=== PATIENT | female | born 1945 | race Caucasian/White ===

== ENCOUNTER → 2018-11-27 07:48 | Outpatient (CLI) | payer MEDICARE, SELFPAY ==
--- NOTE | 2018-11-27 | DI.MRI.S_ITS ---
PROCEDURE: MR KNEE LT WO CON INDICATIONS: Unilateral primary osteoarthritis, left knee TECHNIQUE: Noncontrast sagittal PD fast spin echo and T2 fast spin echo with fat saturation, sagittal 3-D FLASH with fat saturation; coronal T1 spin echo and PD fast spin echo with fat saturation, and axial PD fast spin echo with fat saturation through the knee. COMPARISON: [facility] [place], CR, XR KNEE ARTHRITIC SERIES BI, 10/14/2018, 9:59. FINDINGS: Image quality: Excellent. Menisci: There is degenerative signal in the lateral meniscus extending to the free edge suggestive of mild degenerative tearing. Meniscus appears intact. The meniscal root ligaments also appear intact. Cruciate ligaments: The anterior and posterior cruciate ligaments appear intact. Medial structures: The medial collateral ligament appears intact. There is mild edema along the medial capsule which may represent sequelae of a mild grade 1 MCL sprain or chronic reactive changes. The semimembranosus tendon insertions and meniscocapsular junction appear intact. Visualized portions of the pes anserinus tendons appear intact without associated bursal fluid collections. Lateral structures: The lateral collateral ligament, long and short heads of the biceps femoris tendon appear intact. The popliteus tendon appears intact. Iliotibial band appears normal. Anterior structures: The quadriceps and patellar tendons appear intact. There is slight lateral shift of the patella. No femoral trochlear dysplasia or ventral trochlear prominence. No edema in the infrapatellar fat pad. Bones and cartilage: No bone marrow contusions or fractures. There is mild osteophytosis. There is mild cartilage thinning laterally in the patellofemoral compartment. In the medial and lateral compartments, there is also mild cartilage thinning and chondral fissuring also demonstrated along the lateral tibial plateau associated with mild subchondral edema. Joint space: There is a small joint effusion. No Burnett's cyst. Normal appearing synovial plicae are incidentally noted. IMPRESSION: 1. Mild osteoarthritic changes most prominent in the lateral compartment where there is contrast measuring associated with mild subchondral edema along the lateral tibial plateau. 2. Small joint effusion. 3. Mild degenerative signal in the lateral meniscus extending to the free edge suggestive of minimal degenerative tearing. 4. Mild edema along the medial capsule may represent sequelae of a mild grade 1 MCL sprain or chronic reactive changes. Dictated by: Jayden Tsang M.D. on 11/27/2018 at 11:48 Approved by: Jayden Tsang M.D. on 11/27/2018 at 13:08
== END ==
PROVIDERS: PCP Physician Assistant; Visit Provider Orthopaedic Surgery
DX: M17.12 Unilateral primary osteoarthritis, left knee (principal); M25.462 Effusion, left knee
CPT/HCPCS: 73721

== ENCOUNTER 2022-02-09 05:58 | Emergency (ER) | payer MEDICARE, OTHER, SELFPAY ==
[2022-02-09] VITALS (9 sets, daily range): BP systolic 132–171; BP diastolic 65–77; PULSE 71–88; RESP 16–22; TEMP 36.9; O2SAT 92–96; BMI 28.9
--- NOTE | 2022-02-09 06:10 | DI.RAD.S_ITS ---
PROCEDURE: XR CHEST 1V INDICATIONS: cough TECHNIQUE: One view of the chest was acquired. COMPARISON: [facility], , CHEST 2VW, 07/29/2014, 16:10. FINDINGS: Surgical changes and devices: None. Lungs and pleura: Lungs appear clear. No consolidation. No pleural effusions or pneumothorax. Mediastinum: Mediastinal contours appear normal. Heart size is normal. Bones and chest wall: No suspicious bony lesions. Overlying soft tissues appear unremarkable. IMPRESSION: No acute cardiopulmonary abnormality identified. Dictated by: August Marcelino M.D. on 02/09/2022 at 7:59 Approved by: August Marcelino M.D. on 02/09/2022 at 8:00
--- NOTE | 2022-02-09 06:25 | ED.SOB ---
HPI - SOB/Dyspnea <Nan Colón DO - Last Filed: 02/14/22 04:04> General Chief Complaint: Shortness of Breath/Dyspnea Stated Complaint: severe cough , cough settled into chest Time Seen by Provider: 02/09/22 06:16 Source: patient Mode of arrival: Ambulatory Limitations: no limitations History of Present Illness HPI Narrative: Patient is a healthy 76-year-old female who presents with cough and shortness of breath. She says it has been ongoing for the about the last 2-3 days. He typically walks every day and has no problem however the last couple days she has not felt great. Possibly some fever and chills. She certainly is coughing and can not stop. She denies any chest pain. No swelling. She said she was unable to sleep last night due to the cough. She had a negative home COVID test yesterday Related Data Home Medications Medication Instructions Recorded Confirmed CALCIUM ACETATE (Phoslo) 1,000 mg PO Q DAY ##0 12/13/09 CHOLECALCIFEROL (VITAMIN D3) 1,000 iu PO Q DAY ##0 12/13/09 (Vitamin D3) MULTIVITAMIN (Multivitamin 1 cap PO EVERY DAY ##0 12/13/09 -) Vitamin E (Alpha-Tocopherol) 200 unit PO Q DAY ##0 12/13/09 [FISH OIL] Q DAY ##0 12/13/09 acetaminophen 325 mg tablet 325 mg PO PRN ##0 12/13/09 Previous Rx's Medication Instructions Recorded methylprednisolone 4 mg tablets in See Rx Instructions PO .COMPLEX 02/09/22 a dose pack (Medrol (Neo)) #21 ea Review of Systems <Nan Colón DO - Last Filed: 02/14/22 04:04> Review of Systems Narrative: GENERAL: + fever and chills HEENT: Denies sinus pain, ear pain, sore throat, difficulty swallowing, neck pain RESPIRATORY: See HPI CARDIOVASCULAR: Denies chest pain, palpitations, orthopnea, edema GASTROINTESTINAL: Denies nausea, vomiting, abdominal pain, diarrhea, constipation, melena. : Denies dysuria, frequency, incontinence, hematuria, urinary retention, flank pain. MUSCULOSKELETAL: Denies weakness, joint pain, or bony pain SKIN: No rash, no erythema, no pruritus NEUROLOGIC: Denies weakness, dizziness, headache, numbness, change in speech, confusion PSYCHIATRIC: No concerning psychosocial issues. 12 point review of systems is negative except for those stated above and HPI Patient History <Nan Colón DO - Last Filed: 02/14/22 04:04> Social History Smoking Status: Never smoker Smoking Status: Never smoker Substance Use Type: does not use Exam <Nan Colón DO - Last Filed: 02/14/22 04:04> Initial Vital Signs Initial Vital Signs: Vital Signs Temperature 98.5 F 02/09/22 06:10 Pulse Rate 83 02/09/22 06:10 Respiratory Rate 22 02/09/22 06:10 Blood Pressure 168/74 H 02/09/22 06:10 Pulse Oximetry 93 02/09/22 06:10 Oxygen Delivery Method 02/09/22 06:10 GENERAL: Alert 76-year-old female appears to not feel well and in no acute distress. HEENT: Head atraumatic,EOMI, pupils reactive, face symmetric, moist mucous membranes CARDIOVASCULAR: Regular rate and rhythm without murmurs, rubs or gallops. RESPIRATORY crackles bilaterally no wheezes or rales speaks in full sentences however she is coughing quite a bit ABDOMEN: Soft, nontender. Normoactive bowel sounds all 4 quadrants. No guarding or rebound. EXTREMITIES: Normal range of motion, no clubbing or edema. Neurovascularly intact NEUROLOGICAL: Alert and oriented x4.Normal gait and speech. SKIN: Warm, dry, no laceration, no petechiae, no rashes or lesions. <Kevin Barry MD - Last Filed: 02/09/22 13:27> Initial Vital Signs Initial Vital Signs: Vital Signs Temperature 98.5 F 02/09/22 06:10 Pulse Rate 83 02/09/22 06:10 Respiratory Rate 22 02/09/22 06:10 Blood Pressure 168/74 H 02/09/22 06:10 Pulse Oximetry 93 02/09/22 06:10 Oxygen Delivery Method 02/09/22 06:10 Course <DO Beatriz Smith Last Filed: 02/14/22 04:04> Orders Ordered: Discontinued Medications Albuterol (Albuterol Hfa Prepack) 1 box MIS SEEINSTR ONE Stop: 02/09/22 08:07 Last Admin: 02/09/22 08:11 Dose: 1 box Documented By: CALLI Albuterol/Ipratropium (Albuterol/Ipratropium 3 Ml Ampul) 3 ml INH NOW ONE Stop: 02/09/22 06:23 Last Admin: 02/09/22 06:39 Dose: 3 ml Documented By: CHAVA Prednisone (Prednisone 20 Mg Tablet) 40 mg PO NOW ONE Stop: 02/09/22 08:11 Last Admin: 02/09/22 08:34 Dose: 40 mg Documented By: MANDY Vital Signs Vital signs: Vital Signs - 8 hr 02/09/22 06:10 02/09/22 06:39 02/09/22 06:39 Temperature 98.5 F Pulse Rate 83 71 73 Respiratory Rate 22 18 Blood Pressure 168/74 H Pulse Oximetry 93 95 92 Oxygen Delivery Method Room Air Room Air 02/09/22 07:00 02/09/22 07:00 02/09/22 07:30 Temperature Pulse Rate 76 Respiratory Rate Blood Pressure 149/65 H 171/77 H Pulse Oximetry 95 Oxygen Delivery Method 02/09/22 07:30 02/09/22 07:47 02/09/22 07:47 Temperature Pulse Rate 88 84 Respiratory Rate Blood Pressure 148/67 H Pulse Oximetry 94 96 Oxygen Delivery Method 02/09/22 08:00 02/09/22 08:00 02/09/22 08:11 Temperature Pulse Rate 83 Respiratory Rate Blood Pressure 132/69 Pulse Oximetry 94 96 Oxygen Delivery Method Room Air 02/09/22 08:30 02/09/22 08:30 02/09/22 08:51 Temperature Pulse Rate 82 82 Respiratory Rate 16 Blood Pressure 148/66 H 148/66 H Pulse Oximetry 94 93 Oxygen Delivery Method Room Air <Kevin Barry MD - Last Filed: 02/09/22 13:27> Course Course Narrative: February 09, 2022 at 7:00 a.m.. Sign out from Dr. Colón, patient here for 3 days of upper respiratory symptoms. Not requiring supplemental oxygen. Nebulizing treatment no changes here. Laboratory studies and imaging results are pending. 7:30 a.m.. Introduced myself to patient and her sister. Patient in no distress at this time. On exam she does have bibasilar rhonchi and mild wheezing. Mild coarse lung sounds at the bases. But speaking full sentences. Orders Ordered: Discontinued Medications Albuterol (Albuterol Hfa Prepack) 1 box MIS SEEINSTR ONE Stop: 02/09/22 08:07 Last Admin: 02/09/22 08:11 Dose: 1 box Documented By: CALLI Albuterol/Ipratropium (Albuterol/Ipratropium 3 Ml Ampul) 3 ml INH NOW ONE Stop: 02/09/22 06:23 Last Admin: 02/09/22 06:39 Dose: 3 ml Documented By: CHAVA Prednisone (Prednisone 20 Mg Tablet) 40 mg PO NOW ONE Stop: 02/09/22 08:11 Last Admin: 02/09/22 08:34 Dose: 40 mg Documented By: MANDY Reevaluation(s) Reevaluation #1: Patient ambulated in hallway. 93-95% room air. Patient denies being short of breath. Not dyspneic. She is speaking full sentences. Time: 08:08 Reevaluation #2: Patient feels much better, did have teaching with inhaler and did very well with it. Also flutter valve teaching done and states she feels much better with using that to promote coughing. Denies any dyspnea. Reviewed results with patient and sister. Return precautions reviewed with them. They desire discharge home. Time: 08:36 Vital Signs Vital signs: Vital Signs - 8 hr 02/09/22 06:10 02/09/22 06:39 02/09/22 06:39 Temperature 98.5 F Pulse Rate 83 71 73 Respiratory Rate 22 18 Blood Pressure 168/74 H Pulse Oximetry 93 95 92 Oxygen Delivery Method Room Air Room Air 02/09/22 07:00 02/09/22 07:00 02/09/22 07:30 Temperature Pulse Rate 76 Respiratory Rate Blood Pressure 149/65 H 171/77 H Pulse Oximetry 95 Oxygen Delivery Method 02/09/22 07:30 02/09/22 07:47 02/09/22 07:47 Temperature Pulse Rate 88 84 Respiratory Rate Blood Pressure 148/67 H Pulse Oximetry 94 96 Oxygen Delivery Method 02/09/22 08:00 02/09/22 08:00 02/09/22 08:11 Temperature Pulse Rate 83 Respiratory Rate Blood Pressure 132/69 Pulse Oximetry 94 96 Oxygen Delivery Method Room Air 02/09/22 08:30 02/09/22 08:30 02/09/22 08:51 Temperature Pulse Rate 82 82 Respiratory Rate 16 Blood Pressure 148/66 H 148/66 H Pulse Oximetry 94 93 Oxygen Delivery Method Room Air MDM - SOB/Dyspnea <Nan Colón, DO - Last Filed: 02/14/22 04:04> Lab Data Result diagrams: 02/09/22 06:33 02/09/22 06:33 Labs: Lab Results 02/09/22 02/09/22 02/09/22 Range/Units 06:20 06:33 06:33 WBC 3.8 L (4.5-11.0) X10^3/uL RBC 4.24 (4.0-5.2) X10^6/uL Hgb 12.6 (12.0-16.0) g/dL Hct 36.9 (36-46) % MCV 87.0 (80-100) fL MCH 29.8 (26-34) PG MCHC 34.2 (30-36) % RDW 14.2 (11.6-14.8) % Plt Count 159 (150-400) X10^3/uL Neut % (Auto) 53.2 (50-75) % Lymph % (Auto) 30.4 (25-40) % Moca % (Auto) 12.1 (3-14) % Eos % (Auto) 3.7 (2-4) % Baso % (Auto) 0.6 (0-2) % Neut # (Auto) 2000 (6107-3983) /uL Lymph # (Auto) 1200 (2116-4035) /uL Moca # (Auto) 500 (0-900) /uL Eos # (Auto) 100 (0-450) /uL Baso # (Auto) 0 (0-100) /uL Sodium 138 (137-145) mmol/L Potassium 3.6 (3.4-5.1) mmol/L Chloride 104 (98-107) mmol/L Carbon Dioxide 29 (22-32) mmol/L BUN 10 (7-17) mg/dL Creatinine 0.55 (0.52-1.04) mg/dL Estimated GFR > 60 (>60) mL/min BUN/Creatinine Ratio 18.2 (6-22) Glucose 94 (80-110) mg/dL Calcium 8.6 (8.4-10.2) mg/dL Total Bilirubin 0.5 (0.2-1.3) mg/dL AST 28 (14-36) IU/L ALT 15 (<35) IU/L Alkaline Phosphatase 68 (38-126) U/L Total Protein 6.8 (6.3-8.2) g/dL Albumin 3.7 (3.5-5.0) g/dL Globulin 3.1 (1.7-4.1) g/dL Albumin/Globulin Ratio 1.2 (1.0-2.8) Procalcitonin (<0.5) ng/mL Chlamy pneumoniae PCR Not detected (Not Detect) Adenovirus (PCR) Not detected (Not Detect) B. pertussis DNA (PCR) Not detected (Not Detecte) B.parapertussis DNA PCR Not detected (Not Detecte) Coronavirus OC43 (PCR) Not detected (Not Detect) Coronavirus HKU1 (PCR) Not detected (Not Detect) Coronavirus 229E (PCR) Not detected (Not Detect) SARS-CoV-2 (PCR) Not detected (Not Detecte) Coronavirus NL63 (PCR) Not detected (Not Detect) Human Metapneumovir PCR Not detected (Not Detect) Influenza Type A (PCR) Not detected (Not Detect) Influenza Type B (PCR) Not detected (Not Detect) M. pneumoniae (PCR) Not detected (Not Detect) Parainfluenza 1 (PCR) Not detected (Not Detect) Parainfluenza 2 (PCR) Not detected (Not Detect) Parainfluenza 3 (PCR) Not detected (Not Detect) Parainfluenza 4 (PCR) Not detected (Not Detect) RSV (PCR) Detected H (Not Detect) Entero/Rhino (PCR) Not detected (Not Detect) 02/09/22 Range/Units 06:33 WBC (4.5-11.0) X10^3/uL RBC (4.0-5.2) X10^6/uL Hgb (12.0-16.0) g/dL Hct (36-46) % MCV (80-100) fL MCH (26-34) PG MCHC (30-36) % RDW (11.6-14.8) % Plt Count (150-400) X10^3/uL Neut % (Auto) (50-75) % Lymph % (Auto) (25-40) % Moca % (Auto) (3-14) % Eos % (Auto) (2-4) % Baso % (Auto) (0-2) % Neut # (Auto) (2083-1211) /uL Lymph # (Auto) (9122-4440) /uL Moca # (Auto) (0-900) /uL Eos # (Auto) (0-450) /uL Baso # (Auto) (0-100) /uL Sodium (137-145) mmol/L Potassium (3.4-5.1) mmol/L Chloride (98-107) mmol/L Carbon Dioxide (22-32) mmol/L BUN (7-17) mg/dL Creatinine (0.52-1.04) mg/dL Estimated GFR (>60) mL/min BUN/Creatinine Ratio (6-22) Glucose (80-110) mg/dL Calcium (8.4-10.2) mg/dL Total Bilirubin (0.2-1.3) mg/dL AST (14-36) IU/L ALT (<35) IU/L Alkaline Phosphatase (38-126) U/L Total Protein (6.3-8.2) g/dL Albumin (3.5-5.0) g/dL Globulin (1.7-4.1) g/dL Albumin/Globulin Ratio (1.0-2.8) Procalcitonin 0.07 (<0.5) ng/mL Chlamy pneumoniae PCR (Not Detect) Adenovirus (PCR) (Not Detect) B. pertussis DNA (PCR) (Not Detecte) B.parapertussis DNA PCR (Not Detecte) Coronavirus OC43 (PCR) (Not Detect) Coronavirus HKU1 (PCR) (Not Detect) Coronavirus 229E (PCR) (Not Detect) SARS-CoV-2 (PCR) (Not Detecte) Coronavirus NL63 (PCR) (Not Detect) Human Metapneumovir PCR (Not Detect) Influenza Type A (PCR) (Not Detect) Influenza Type B (PCR) (Not Detect) M. pneumoniae (PCR) (Not Detect) Parainfluenza 1 (PCR) (Not Detect) Parainfluenza 2 (PCR) (Not Detect) Parainfluenza 3 (PCR) (Not Detect) Parainfluenza 4 (PCR) (Not Detect) RSV (PCR) (Not Detect) Entero/Rhino (PCR) (Not Detect) MDM Narrative Medical decision making narrative: Patient signed out to Dr. Lofton for disposition Appropriate for discharge home. Exam and laboratory studies otherwise reassuring. Return precautions reviewed with patient and sister. Patient not dyspneic or hypoxic on ambulating in hallway on room air. Patient tolerated inhaler as well as flutter valve very well. They do understand no antibiotics for viral bronchitis. <Kevin Barry MD - Last Filed: 02/09/22 13:27> Differential Diagnosis Differential diagnosis: Likely community acquired pneumonia, asthma with exacerbation and other (Bronchitis) Lab Data Labs: Lab Results 02/09/22 02/09/22 02/09/22 Range/Units 06:20 06:33 06:33 WBC 3.8 L (4.5-11.0) X10^3/uL RBC 4.24 (4.0-5.2) X10^6/uL Hgb 12.6 (12.0-16.0) g/dL Hct 36.9 (36-46) % MCV 87.0 (80-100) fL MCH 29.8 (26-34) PG MCHC 34.2 (30-36) % RDW 14.2 (11.6-14.8) % Plt Count 159 (150-400) X10^3/uL Neut % (Auto) 53.2 (50-75) % Lymph % (Auto) 30.4 (25-40) % Moca % (Auto) 12.1 (3-14) % Eos % (Auto) 3.7 (2-4) % Baso % (Auto) 0.6 (0-2) % Neut # (Auto) 2000 (3140-1927) /uL Lymph # (Auto) 1200 (4737-0752) /uL Moca # (Auto) 500 (0-900) /uL Eos # (Auto) 100 (0-450) /uL Baso # (Auto) 0 (0-100) /uL Sodium 138 (137-145) mmol/L Potassium 3.6 (3.4-5.1) mmol/L Chloride 104 (98-107) mmol/L Carbon Dioxide 29 (22-32) mmol/L BUN 10 (7-17) mg/dL Creatinine 0.55 (0.52-1.04) mg/dL Estimated GFR > 60 (>60) mL/min BUN/Creatinine Ratio 18.2 (6-22) Glucose 94 (80-110) mg/dL Calcium 8.6 (8.4-10.2) mg/dL Total Bilirubin 0.5 (0.2-1.3) mg/dL AST 28 (14-36) IU/L ALT 15 (<35) IU/L Alkaline Phosphatase 68 (38-126) U/L Total Protein 6.8 (6.3-8.2) g/dL Albumin 3.7 (3.5-5.0) g/dL Globulin 3.1 (1.7-4.1) g/dL Albumin/Globulin Ratio 1.2 (1.0-2.8) Procalcitonin (<0.5) ng/mL Chlamy pneumoniae PCR Not detected (Not Detect) Adenovirus (PCR) Not detected (Not Detect) B. pertussis DNA (PCR) Not detected (Not Detecte) B.parapertussis DNA PCR Not detected (Not Detecte) Coronavirus OC43 (PCR) Not detected (Not Detect) Coronavirus HKU1 (PCR) Not detected (Not Detect) Coronavirus 229E (PCR) Not detected (Not Detect) SARS-CoV-2 (PCR) Not detected (Not Detecte) Coronavirus NL63 (PCR) Not detected (Not Detect) Human Metapneumovir PCR Not detected (Not Detect) Influenza Type A (PCR) Not detected (Not Detect) Influenza Type B (PCR) Not detected (Not Detect) M. pneumoniae (PCR) Not detected (Not Detect) Parainfluenza 1 (PCR) Not detected (Not Detect) Parainfluenza 2 (PCR) Not detected (Not Detect) Parainfluenza 3 (PCR) Not detected (Not Detect) Parainfluenza 4 (PCR) Not detected (Not Detect) RSV (PCR) Detected H (Not Detect) Entero/Rhino (PCR) Not detected (Not Detect) 02/09/22 Range/Units 06:33 WBC (4.5-11.0) X10^3/uL RBC (4.0-5.2) X10^6/uL Hgb (12.0-16.0) g/dL Hct (36-46) % MCV (80-100) fL MCH (26-34) PG MCHC (30-36) % RDW (11.6-14.8) % Plt Count (150-400) X10^3/uL Neut % (Auto) (50-75) % Lymph % (Auto) (25-40) % Moca % (Auto) (3-14) % Eos % (Auto) (2-4) % Baso % (Auto) (0-2) % Neut # (Auto) (1578-6484) /uL Lymph # (Auto) (7148-8806) /uL Moca # (Auto) (0-900) /uL Eos # (Auto) (0-450) /uL Baso # (Auto) (0-100) /uL Sodium (137-145) mmol/L Potassium (3.4-5.1) mmol/L Chloride (98-107) mmol/L Carbon Dioxide (22-32) mmol/L BUN (7-17) mg/dL Creatinine (0.52-1.04) mg/dL Estimated GFR (>60) mL/min BUN/Creatinine Ratio (6-22) Glucose (80-110) mg/dL Calcium (8.4-10.2) mg/dL Total Bilirubin (0.2-1.3) mg/dL AST (14-36) IU/L ALT (<35) IU/L Alkaline Phosphatase (38-126) U/L Total Protein (6.3-8.2) g/dL Albumin (3.5-5.0) g/dL Globulin (1.7-4.1) g/dL Albumin/Globulin Ratio (1.0-2.8) Procalcitonin 0.07 (<0.5) ng/mL Chlamy pneumoniae PCR (Not Detect) Adenovirus (PCR) (Not Detect) B. pertussis DNA (PCR) (Not Detecte) B.parapertussis DNA PCR (Not Detecte) Coronavirus OC43 (PCR) (Not Detect) Coronavirus HKU1 (PCR) (Not Detect) Coronavirus 229E (PCR) (Not Detect) SARS-CoV-2 (PCR) (Not Detecte) Coronavirus NL63 (PCR) (Not Detect) Human Metapneumovir PCR (Not Detect) Influenza Type A (PCR) (Not Detect) Influenza Type B (PCR) (Not Detect) M. pneumoniae (PCR) (Not Detect) Parainfluenza 1 (PCR) (Not Detect) Parainfluenza 2 (PCR) (Not Detect) Parainfluenza 3 (PCR) (Not Detect) Parainfluenza 4 (PCR) (Not Detect) RSV (PCR) (Not Detect) Entero/Rhino (PCR) (Not Detect) Imaging Data Chest x-ray: Radiologist's Impression: [address] [address] XRay Report Signed Patient: Danya Rhoades MR#: [id number] : 1945 Acct:[id number] Age/Sex: 76 / F Date of Service: 02/09/22 Loc: ED Accession Number: [id number] ?? Procedure: XR chest 1V Ordering Provider: Nan Colón D.O. PROCEDURE:? XR CHEST 1V ? INDICATIONS:? cough ? TECHNIQUE:? One view of the chest was acquired.? ? COMPARISON:? [facility], , CHEST 2VW, 07/29/2014, 16:10. ? FINDINGS:? ? Surgical changes and devices:? None.? ? Lungs and pleura:? Lungs appear clear.? No consolidation.? No pleural effusions or pneumothorax.? ? Mediastinum:? Mediastinal contours appear normal.? Heart size is normal.? ? Bones and chest wall:? No suspicious bony lesions.? Overlying soft tissues appear unremarkable.? ? IMPRESSION:? No acute cardiopulmonary abnormality identified. ? ? ? Dictated by: August Marcelino M.D. on 02/09/2022 at 7:59 ? ? Approved by: August Marcelino M.D. on 02/09/2022 at 8:00 ? [facility] Narrative Medical decision making narrative: Appropriate for discharge home. Exam and laboratory studies otherwise reassuring. Return precautions reviewed with patient and sister. Patient not dyspneic or hypoxic on ambulating in hallway on room air. Patient tolerated inhaler as well as flutter valve very well. They do understand no antibiotics for viral bronchitis. Discharge Plan Departure Patient Disposition: Home Clinical Impression: RSV bronchitis Instructions: DI for Respiratory Syncytial Virus -- Adults Activity Restrictions/Additional Instructions: See family doctor in a week for re-evaluation. Continue steroid pack tomorrow. Keep well hydrated. May use Tylenol for any fever or pain. Use inhaler 2 puffs every 4 hours as needed for cough. Please use the flutter valve device every hour while awake to promote coughing and expectorant. Return if worse for any questions or concerns. Prescriptions: New methylprednisolone [Medrol (Neo)] 4 mg tablets,dose pack See Rx Instructions .ROUTE .COMPLEX Qty: 21 0RF Rx Instructions: orally per package directions No Action acetaminophen 325 MG tablet 325 mg PO PRN Qty: 0 CALCIUM ACETATE (Phoslo) 1,000 mg PO Q DAY Qty: 0 CHOLECALCIFEROL (VITAMIN D3) (Vitamin D3) 1,000 iu PO Q DAY Qty: 0 MULTIVITAMIN (Multivitamin -) 1 cap PO EVERY DAY Qty: 0 Vitamin E (Alpha-Tocopherol) 200 unit PO Q DAY Qty: 0 [FISH OIL] Q DAY Qty: 0 Referrals: Noemí Santos PA-C [Primary Care Provider] - Visit Report Forms: Patient Portal/API
[2022-02-09] MEDS: ALBUTEROL/IPRATROPIUM 3 ML AMPUL INH (06:39)
[2022-02-09 06:50] LABS: Add Manual Diff / Slide Review NO; Basophils Absolute Auto 0 /uL (0-100); Basophils Percent Auto 0.6 % (0-2); Eosinophils Absolute Auto 100 /uL (0-450); Eosinophils Percent Auto 3.7 % (2-4); Hematocrit 36.9 % (36-46); Hemoglobin 12.6 g/dL (12.0-16.0); Lymphocytes Absolute Auto 1200 /uL (1100-4500); Lymphocytes Percent Auto 30.4 % (25-40); Mean Corpuscular HGB Conc 34.2 % (30-36); Mean Corpuscular Hemoglobin 29.8 PG (26-34); Monocytes Absolute Auto 500 /uL (0-900); Monocytes Percent Auto 12.1 % (3-14); Neutrophils Absolute Auto 2000 /uL (1500-7000); Neutrophils Percent Auto 53.2 % (50-75); Platelet Count 159 X10^3/uL (150-400); Red Blood Cell Count 4.24 X10^6/uL (4.0-5.2); Red Cell Distribution Width 14.2 % (11.6-14.8); White Blood Cell Count 3.8 X10^3/uL (4.5-11.0)
[2022-02-09 06:54] LABS: Alanine Aminotransferase 15 IU/L (<35); Albumin 3.7 g/dL (3.5-5.0); Albumin Globulin Ratio 1.2 (1.0-2.8); Alkaline Phosphatase 68 U/L (38-126); Aspartate Aminotransferase 28 IU/L (14-36); BUN Creatinine Ratio 18.2 (6-22); Bilirubin Total 0.5 mg/dL (0.2-1.3); Blood Urea Nitrogen 10 mg/dL (7-17); Calcium 8.6 mg/dL (8.4-10.2); Carbon Dioxide 29 mmol/L (22-32); Chloride 104 mmol/L (98-107); Estimated Glomerular Filt Rate > 60 mL/min (>60); Globulin 3.1 g/dL (1.7-4.1); Glucose 94 mg/dL (80-110); HEMOLYSIS < 15 (0-50); Potassium 3.6 mmol/L (3.4-5.1); Sodium 138 mmol/L (137-145); Total Protein 6.8 g/dL (6.3-8.2)
[2022-02-09 07:11] LABS: Procalcitonin 0.07 ng/mL (<0.5)
--- NOTE | 2022-02-09 07:44 | PC.NURSE ---
Ambulated pt around the ED to monitor pulse oximetry. Pt 93% on RA while laying in bed and O2 sats were, 93-95 during ambulation trial. Physician aware.
[2022-02-09 07:59] LABS: Adenovirus Not Detected (Not Detect); B. parapertussis Not Detected (Not Detecte); Bordetella pertussis Not Detected (Not Detecte); Chlamydophila pneumoniae Not Detected (Not Detect); Coronavirus 229E Not Detected (Not Detect); Coronavirus HKU1 Not Detected (Not Detect); Coronavirus NL 63 Not Detected (Not Detect); Coronavirus OC43 Not Detected (Not Detect); Human Metapneumovirus Not Detected (Not Detect); Human Rhinovirus/Enterovirus Not Detected (Not Detect); Influenza A Not Detected (Not Detect); Influenza B Not Detected (Not Detect); Parainfluenza Virus 1 Not Detected (Not Detect); Parainfluenza Virus 2 Not Detected (Not Detect); Parainfluenza Virus 3 Not Detected (Not Detect); Parainfluenza Virus 4 Not Detected (Not Detect); Respiratory Syncytial Virus Detected (Not Detect); SARS- CoV-2 Not Detected (Not Detecte)
[2022-02-09 08:01] LABS: Mycoplasma pneumoniae Not Detected (Not Detect)
[2022-02-09] MEDS: ALBUTEROL HFA PREPACK 1 BOX MISC (08:11)
[2022-02-09] MEDS: predniSONE 20 MG TABLET 40 MG PO (08:34)
== END 2022-02-09 08:53 | disposition home or self-care (01) ==
PROVIDERS: Emergency Medicine; Emergency Provider Emergency Medicine; PCP Physician Assistant
DX: J20.5 Acute bronchitis due to respiratory syncytial virus (principal); Z20.822 Contact with and (suspected) exposure to COVID-19
CPT/HCPCS: 36415; 71045; 80053; 84145; 85025; 87633; 94640; 99284